=== PATIENT | female | born 1970 | race African-American/Black ===

== ENCOUNTER 2018-08-09 20:43 | Emergency (ER) | payer MEDICAID, OTHER ==
[2018-08-09] MEDS ORDERED: NS 1,000 ML IV ONE (21:16)
[2018-08-09] MEDS ORDERED: ONDANSETRON 4 MG/2 ML VIAL IVP ONE (21:16)
[2018-08-09 21:21] LABS: PLATELET COUNT 298 10^3/uL (150-400)
--- NOTE | 2018-08-09 22:26 | EDPHY ---
H & P Stated Complaint: CP, SOB, very anxious 1900 start Time Seen by Provider: 08/09/18 21:00 HPI/ROS: Chief Complaint: Chest tightness, nausea HPI: 48-year-old woman began having some chest tightness and nausea while eating he said 7:00 a.m. Tonight. She has not vomited. No shortness of breath. No fevers or chills. No cough. No family history of coronary artery disease. No exertional dyspnea. Patient states that her chest tightness has gone away. She is not complaining of nausea. No abdominal pain. No diarrhea or constipation. No leg pain or swelling. No recent travel. ROS: 10 systems were reviewed and were negative except those elements noted in the HPI. PMH: Anemia associated with uterine fibroids Social History: No smoking, no alcohol, no recreational drug use Family History: non-contributory Physical Exam: Gen: Awake, Alert, No Distress HEENT: Nose: no rhinorrhea Eyes: PERRLA, EOMI Mouth: Moist mucosa Neck: Supple, no JVD Chest: nontender, lungs clear to auscultation Heart: S1, S2 normal, no murmur Abd: Soft, non-tender, no guarding Back: no CVA tenderness, no midline tenderness Ext: no edema, non-tender Skin: no rash Neuro: CN II-XII intact, Sensation grossly intact, Strength 5/5 in bilateral upper and lower extremities - Personal History Current Tetanus/Diphtheria Vaccine: No Current Tetanus Diphtheria and Acellular Pertussis (TDAP): No - Medical/Surgical History Hx Asthma: No Hx Chronic Respiratory Disease: No Hx Diabetes: No Hx Cardiac Disease: Yes Hx Renal Disease: No Hx Cirrhosis: No Hx Alcoholism: No Hx HIV/AIDS: No Hx Splenectomy or Spleen Trauma: No Other PMH: hx of anemia, does not know H/H, took benadryl 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 - Social History Smoking Status: Never smoked Constitutional: Initial Vital Signs Temperature (C) 37.0 C 08/09/18 21:02 Heart Rate 89 08/09/18 21:02 Respiratory Rate 24 H 08/09/18 21:02 Blood Pressure 120/88 H 08/09/18 21:02 O2 Sat (%) 97 08/09/18 21:02 O2 Delivery Mode Room Air Allergies/Adverse Reactions: Shellfish *RETIRED-06/13/12 [Shellfish] Allergy (Intermediate, Verified 20:51) Home Medications: Medication Instructions Recorded NK [No Known Home Meds] 08/09/18 Medical Decision Making - Diagnostics EKG Interpretation: ECG time 8:58 p.m., sinus rhythm with a rate of 86, there is left atrial enlargement, no acute ST or T-wave changes. ED Course/Re-evaluation: 3-year-old woman symptoms no resolved had some chest tightness at about 7:00 a.m.. Troponin is 0. Laboratory evaluations unremarkable. ECG is unremarkable. Patient does not want to stay for any further evaluation. I have explained to her that I cannot rule out heart attack based on a single troponin at this time. Patient states she understands this. I have explained that take several hours to know that this is elevated. Patient's she understands should she does not have risk factors for coronary disease. She wants to go home and will return for any concerns. She refuses any further evaluation at this time. - Data Points Laboratory Results: Laboratory Results 08/09/18 21:10 08/09/18 21:10 08/09/18 08/09/18 08/09/18 21:12 21:10 21:10 WBC 15.38 10^3/uL H 10^3/uL (3.80-9.50) RBC 5.03 10^6/uL 10^6/uL (4.18-5.33) Hgb 13.8 g/dL g/dL (12.6-16.3) Hct 41.0 % % (38.0-47.0) MCV 81.5 fL fL (81.5-99.8) MCH 27.4 pg L pg (27.9-34.1) MCHC 33.7 g/dL g/dL (32.4-36.7) RDW 12.4 % % (11.5-15.2) Plt Count 298 10^3/uL 10^3/uL (150-400) MPV 9.1 fL fL (8.7-11.7) Neut % (Auto) 82.2 % H % (39.3-74.2) Lymph % (Auto) 11.6 % L % (15.0-45.0) Ward % (Auto) 5.0 % % (4.5-13.0) Eos % (Auto) 0.4 % L % (0.6-7.6) Baso % (Auto) 0.5 % % (0.3-1.7) Nucleat RBC Rel Count 0.0 % % (0.0-0.2) Absolute Neuts (auto) 12.64 10^3/uL H 10^3/uL (1.70-6.50) Absolute Lymphs (auto) 1.79 10^3/uL 10^3/uL (1.00-3.00) Absolute Monos (auto) 0.77 10^3/uL 10^3/uL (0.30-0.80) Absolute Eos (auto) 0.06 10^3/uL 10^3/uL (0.03-0.40) Absolute Basos (auto) 0.07 10^3/uL 10^3/uL (0.02-0.10) Absolute Nucleated RBC 0.00 10^3/uL 10^3/uL (0-0.01) Immature Gran % 0.3 % % (0.0-1.1) Immature Gran # 0.05 10^3/uL 10^3/uL (0.00-0.10) Sodium 138 mEq/L mEq/L (135-145) Potassium 3.8 mEq/L mEq/L (3.3-5.0) Chloride 107 mEq/L mEq/L (97-110) Carbon Dioxide 20 mEq/l L mEq/l (22-31) Anion Gap 11 mEq/L mEq/L (6-14) BUN 18 mg/dL mg/dL (7-23) Creatinine 1.0 mg/dL mg/dL (0.6-1.0) Estimated GFR 59 Glucose 111 mg/dL H mg/dL (70-100) Calcium 9.6 mg/dL mg/dL (8.5-10.4) POC Troponin I 0.00 ng/mL ng/mL (0.00-0.08) Medications Given: Discontinued Medications Sodium Chloride (Ns) 1,000 mls @ 0 mls/hr IV ONCE ONE; Wide Open PRN Reason: Protocol Stop: 08/09/18 21:17 Last Admin: 08/09/18 21:20 Dose: 1,000 mls Ondansetron HCl (Zofran) 4 mg IVP EDNOW ONE Stop: 08/09/18 21:17 Last Admin: 08/09/18 21:19 Dose: 4 mg Point of Care Test Results: Chemistry 08/09/18 21:12 POC Troponin I 0.00 ng/mL ng/mL (0.00-0.08) Departure - Departure Disposition: Home, Routine, Self-Care Clinical Impression: Chest pain, Nausea Condition: Good Instructions: Chest Pain (ED), Acute Nausea and Vomiting (ED), Ondansetron (By mouth) Additional Instructions: You may take Zofran as needed for nausea. Return to the emergency department for increasing chest pain, shortness of breath, uncontrolled nausea vomiting, fevers or chills, or any other concerns. Follow up with primary care physician in 2-3 days for further evaluation. Referrals: María Baker MD [[facility] [place] Primary Care Provider] - As per Instructions
[2018-08-09] MEDS ORDERED: ONDANSETRON 4MG PREPACK#2 BTL TAKEHOME ONE (22:27)
--- NOTE | 2018-08-09 22:30 | CPEKG ---
Test Reason : OPEN Blood Pressure : / mmHG Vent. Rate : 086 BPM Atrial Rate : 087 BPM P-R Int : 185 ms QRS Dur : 084 ms QT Int : 364 ms P-R-T Axes : 040 022 -01 degrees QTc Int : 436 ms Sinus rhythm Left atrial enlargement Confirmed by Benny Henao ([id number]) on 08/09/2018 10:29:28 PM Referred By: Confirmed By:Benny Henao
[2018-08-09 22:45] VITALS: BP 122/72
== END 2018-08-09 22:52 | disposition home or self-care (01) ==
DX: R07.9 Chest pain, unspecified (principal); R11.0 Nausea; E86.9 Volume depletion, unspecified; I51.7 Cardiomegaly
CPT/HCPCS: 84484-PO; 96374; J2405